=== PATIENT | female | born 1935 | race Caucasian/White ===

== ENCOUNTER 2018-04-29 22:23 | Inpatient (IN) | payer MEDICARE, MEDICAID ==
[2018-04-29] MEDS ORDERED: Ondansetron HCl/PF 4 MG/2 ML Vial ONE (22:33)
[2018-04-29] MEDS ORDERED: Ibuprofen 800 MG TAB ONE (22:38)
[2018-04-29] MEDS ORDERED: Piperacillin/Tazobactam 2.25 GM VIAL ONE (23:52)
[2018-04-30] MEDS ORDERED: Acetaminophen 325 MG TAB ONE (00:07)
[2018-04-30] MEDS ORDERED: Morphine 2 MG/ML SYRINGE ONE (00:07)
--- NOTE | 2018-04-30 00:40 | CT ---
ABDOMEN AND PELVIS CT NONCONTRAST: INDICATIONS: Pyelonephritis. Sepsis. TECHNIQUE: Renal calculus protocol. FINDINGS: There is punctate right nephrolithiasis, without hydronephrosis. Evaluation for pyelonephritis is li mited on the basis of noncontrast imaging. There is nonspecific mild perinephric fat stranding on th e left. Scattered vascular disease is present. There is granulomatous calcification of the spleen. The maliha d abdominal organs, bowel, lymph nodes, and vasculature are otherwise limited on the basis of the non contrast technique. There is colonic diverticulosis. No free air. Incidental note of several calci fications of the bilaterally partially imaged breast tissues. Mild bilateral pleural-based densities at the lung bases may be related to volume loss. IMPRESSION: 1. Nonobstructive, punctate right nephrolithiasis. 2. Asymmetric left perinephric fat stranding. Evaluation for pyelonephritis is limited on the basis of noncontrast CT imaging. 3. Colonic diverticulosis. POS: [facility]
--- NOTE | 2018-04-30 00:47 | PDOC.FPRHP ---
- History of Present Illness Chief Complaint: Weakness History of Present Illness: Ms. Hood presents to ED after increasing weakness, fever/chills. she reports that she was treated for UTI 3 weeks ago with a one week course of an antibiotic she cannot remember. The incontinence, dysuria, and polyuria began to recur one week ago, she saw her PCP and was not satisfied with managment at that time. She denies any gross hematuria, syncope, SOB, CP, or diarrhea. reports decrease PO intake, N/V. ED Course: CBC/CMP, UA, CT stone, zosyn WBC 18 Na 126 1.5 L fluid - History PMHx: RA, DMII, Hypothyroid, HTN, anxiety PSHx: Cholecystectomy, hysterectomy FHx:none Social: former smoker - Review of Systems General: reports: fever/chills, fatigue. denies: weight/appetite/sleep changes Eyes: denies: eye pain, vision changes ENT: denies: nasal congestion, rhinorrhea Respiratory: denies: cough, congestion, shortness of breath Cardiovascular: denies: chest pain, palpitation, edema Gastrointestinal: reports: nausea, vomiting. denies: diarrhea Genitourinary: reports: incontinence, dysuria, polyuria Skin: denies: rashes, lesions Musculoskeletal: denies: pain, tenderness Neurological: denies: numbness, syncope - Vital signs BP: [123/63] HR: [70] RR: [19] Tmax: [101.7] Pox: [100]% on [RA] Wt: [70kg] - Physical Exam Constitutional: NAD, other (mildly somnolent and slow to respond) HEENT: normocephalic and atraumatic, grossly normal vision, MMM Neck: supple, trachea midline Chest: no-tender to palpation Heart: RRR, normal S1/S2, no murmurs/rubs/gallops Lungs: CTAB, no respiratory distress, good air movement Abdomen: soft, non-tender Musculoskeletal: normal structure, normal tone Neurological: no focal deficit, CN II-XII intact Skin: no rash/lesions, good turgor, capillary refill <2 seconds Heme/Lymphatic: no unusual bruising or bleeding, no petechia Psychiatric: normal mood and affect FMR H&P: A/P - Problem List (1) Sepsis Current Visit: Yes Status: Acute Code(s): A41.9 - SEPSIS, UNSPECIFIED ORGANISM (2) UTI (urinary tract infection) Current Visit: Yes Status: Acute (3) Hyponatremia Current Visit: Yes Status: Acute Code(s): E87.1 - HYPO-OSMOLALITY AND HYPONATREMIA (4) LAURA (acute kidney injury) Current Visit: Yes Status: Acute Code(s): N17.9 - ACUTE KIDNEY FAILURE, UNSPECIFIED (5) HTN (hypertension) Current Visit: Yes Status: Acute Code(s): I10 - ESSENTIAL (PRIMARY) HYPERTENSION (6) Diabetes mellitus type 2, controlled Current Visit: Yes Status: Acute Code(s): E11.9 - TYPE 2 DIABETES MELLITUS WITHOUT COMPLICATIONS (7) HLD (hyperlipidemia) Current Visit: Yes Status: Acute Code(s): E78.5 - HYPERLIPIDEMIA, UNSPECIFIED (8) Hypothyroid Current Visit: Yes Status: Acute Code(s): E03.9 - HYPOTHYROIDISM, UNSPECIFIED - Plan 1. Sepsis - likely 2/2 to pyelonephritis with non obstructing stones - 1 L NS bolus - monitor vital signs - repeat CBC 2. UTI - likely source, risk factors for drug resistance - meropenem and vancomycin for empiric coverage - narrow pending UCx results 3. Hyponatremia - volume down 2/2 sepsis - NS 150 ml/hr - monitor urine output 4. LAURA - fluid resuscitation - repeat CMP 5. HTN - hold home medications 6. DMII - elevated glucose, continue home meds 7. HLD -continue home meds 8. Hypothyroid - continue home meds Disposition/LOS: monitor on medical floor, await culture results and sensitivities, adequately fluid resuscitate FMR H&P: Upper Level - Pertinent history 82F presents with pyelonephritis seen on CT from [facility]. Issue started 3 weeks ago when she was treated for UTI as outpatient. Patient was unable to say which antibiotic was used. She completed abx course and felt improved until 1 week ago when she felt UTI symptom of dysuria return. She started abx again 1 day before being seen at [facility]. She came in to that ER due to feeling increased malaise. CT scan and UA there suggested pyelonephritis. She was started with 500 ml NS bolus, 1 g ceftriaxone and started on 100 ml/hrs NS before transfer to [facility]. She received 1000 ml NS bolus here. - Pertinent findings Gen: Alert, oriented, NAD HEENT: Dry mucosal membrane, Resp: CTA bilaterally CV: RRR with no apparent m/g/r GI: Normoactive, soft to palpation Ext: No pitting edema - Plan Date/Time: 04/30/18 0041 I, [Carlos Turk], have evaluated this patient and agree with findings/plan as outlined by actuarial intern resident. Pertinent changes/additions are listed here. 1. Sepsis secondary to left sided Pyelonephritis, failing outpatient therpay - WBC elevation, fever - Start on Meropenem and vancomycin - Pending blood/urine culture - 1000 ml NS bolus in addition to previous bolus for resuscitation. 2. Hypovolemic hyponatremia - Based on history of sepsis. - NS fluid hydration. Reevaluate with CMP - Consider further workup on hyponatremia if does not correct. Goal is 6-8 increase in 24 hour. 3. LAURA vs CKD - No previous kidney function to compare with. - Fluid hydration, reevaluate with lab. Consider nephro consult if not improving 4. 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 Hypothyrodism - Chronic issue, continue home med 6. HTN - Chronic issue, hold during acute sepsis 7. DM2 - Chronic issue, SSI.
[2018-04-30] MEDS ORDERED: Dextrose 50% Abboject 50 ML SYRINGE SLOW IVP PRN (03:34)
[2018-04-30] MEDS ORDERED: Sodium Chloride 0.9% 1,000 ML IV SCH (03:34)
[2018-04-30] MEDS ORDERED: Acetaminophen 325 MG TAB PO PRN (03:34)
[2018-04-30] MEDS ORDERED: HumaLOG 300 UNITS/3 ML VIAL SC PRN (03:34)
[2018-04-30] MEDS ORDERED: Dextrose 5% in Water 1,000 ML IV PRN (03:34)
[2018-04-30] MEDS ORDERED: Ondansetron ODT 4 MG TAB PO PRN (03:34)
[2018-04-30 04:10] VITALS: BMI 27.3
[2018-04-30] MEDS: Sodium Chloride 0.9% 1,000 ML IV SCH ×3 (05:00→20:12)
[2018-04-30] MEDS: MEROPENEM 1 GM/50 ML 1 GM in Premix Bag 1 BAG IVPB SCH ×3 (05:25→21:41)
[2018-04-30] MEDS: Vancomycin HCl 1 GM in Premix Bag 1 BAG IVPB SCH ×2 (05:26→17:38)
[2018-04-30] MEDS: HumaLOG 300 UNITS/3 ML VIAL SC PRN ×2 (05:31→13:28)
[2018-04-30] MEDS ORDERED: Non-Formulary Item 1 EACH (Prednisone [Prednisone] 2.5 MG) PO SCH (08:00)
[2018-04-30] MEDS ORDERED: Tolterodine Tartrate LA 4 MG CAP PO SCH (09:00)
[2018-04-30] MEDS ORDERED: Levothyroxine Sodium 75 MCG TAB PO SCH (09:00)
[2018-04-30] MEDS ORDERED: Non-Formulary Item 1 EACH (Insulin Glargine,Hum.Rec.Anlog [Basaglar Kwikpen U-100] 25 UNI SC SCH (09:00)
[2018-04-30] MEDS: Enoxaparin Sodium 40 MG/0.4 ML SYRINGE SC SCH (09:58)
[2018-04-30] MEDS: Insulin Glargine 25 UNITS in Pre-Filled Syringe 1 EACH SC SCH (09:58)
[2018-04-30] MEDS: TROSPIUM 20 MG TABLET PO SCH ×2 (09:59→20:11)
[2018-04-30] MEDS: Escitalopram Oxalate 10 mg Tablet PO SCH (09:59)
[2018-04-30] MEDS: Hydroxychloroquine Sulfate 200 MG TAB PO SCH (09:59)
[2018-04-30] MEDS: predniSONE 5 MG TAB PO SCH (09:59)
--- NOTE | 2018-04-30 12:55 | HP ---
I have read through the history and physical of Dr. Aguila Boone and I have discussed the case with bindu castellano. HISTORY OF PRESENT ILLNESS: Briefly, Ms. Hood is a pleasant 82-year-old white female patient who was admitted with pyelonephritis. It is obvious from her history that she has had several urinary tr act infections during the last year that seemed to recur quite frequently. Of note is the fact she a lso has kidney stones in her right kidney. She presented to our ER with fever, chills, and a high wh ite count, abnormal urinalysis and has been started on broad spectrum antibiotics. PHYSICAL EXAMINATION: GENERAL: Right now she is awake, alert, in no distress. VITAL SIGNS: Her initial temperature is 101.7. She is currently afebrile, pulse rate is 70 and regu lar, respirations are 16, her room air oxygen saturation is 96%. Her blood pressure 121/60. ENT: Moist mucous membranes. NECK: Supple. CARDIAC: Heart rhythm regular, no gallop or murmur noted. LUNGS: Clear, without rales or wheezes. ABDOMEN: Flat and soft, without guarding, rebound or rigidity. LABORATORY DATA: Her white count was elevated. She does have an abnormal urinalysis. ASSESSMENT: Pyelonephritis with presence of kidney stones. PLAN: Continue broad spectrum antibiotics. It sounds from her history like the stones possibly are serving as a nidus of infection, so we will consult Urology.
[2018-04-30] MEDS: Ibuprofen 600 MG TAB PO PRN (15:43)
[2018-05-01] MEDS: Vancomycin HCl 1 GM in Premix Bag 1 BAG IVPB SCH (03:58)
[2018-05-01] MEDS: Sodium Chloride 0.9% 1,000 ML IV SCH (03:58)
[2018-05-01 04:38] LABS: ALT (SGPT) 12 U/L (8-55); AST (SGOT) 19 U/L (5-34); Alkaline Phosphatase 73 U/L (40-150); Anion Gap 11 mmol/L (10-20); BUN (Urea Nitrogen) 25 mg/dL (9.8-20.1); Bilirubin, Total 0.5 mg/dL (0.2-1.2); Calc. Creatinine Clearance 38 mL/min (70-130); Calcium 8.9 mg/dL (7.8-10.44); Carbon Dioxide 21 mmol/L (23-31); Chloride 98 mmol/L (98-107); Estimated GFR-MDRD 40; Globulin 2.2 g/dL (2.4-3.5); Glucose 140 mg/dL (83-110); Potassium 3.4 mmol/L (3.5-5.1); Protein, Total 5.2 g/dL (6.0-8.3); Sodium 127 mmol/L (136-145)
[2018-05-01] MEDS: Levothyroxine Sodium 75 MCG TAB PO SCH (05:29)
[2018-05-01] MEDS: MEROPENEM 1 GM/50 ML 1 GM in Premix Bag 1 BAG IVPB SCH ×3 (05:30→23:47)
--- NOTE | 2018-05-01 05:44 | PDOC.FM ---
- Objective MAR Reviewed: Yes Vital Signs & Weight: Vital Signs (12 hours) Temp Pulse Resp BP Pulse Ox 04/30/18 20:07 97.9 F 73 18 157/70 H 94 L Weight Weight 72.178 kg I&O: 04/29/18 04/30/18 05/01/18 06:59 06:59 06:59 Intake Total 4018 Output Total 1450 Balance 2568 Result Diagrams: 05/01/18 04:00 Dx/Plan (1) Sepsis Code(s): A41.9 - SEPSIS, UNSPECIFIED ORGANISM Status: Acute (2) Pyelonephritis, acute Code(s): N10 - ACUTE PYELONEPHRITIS Status: Acute (3) LAURA (acute kidney injury) Code(s): N17.9 - ACUTE KIDNEY FAILURE, UNSPECIFIED Status: Acute (4) Diabetes mellitus type 2, controlled Code(s): E11.9 - TYPE 2 DIABETES MELLITUS WITHOUT COMPLICATIONS Status: Acute (5) HLD (hyperlipidemia) Code(s): E78.5 - HYPERLIPIDEMIA, UNSPECIFIED Status: Acute (6) HTN (hypertension) Code(s): I10 - ESSENTIAL (PRIMARY) HYPERTENSION Status: Acute (7) Hyponatremia Code(s): E87.1 - HYPO-OSMOLALITY AND HYPONATREMIA Status: Acute (8) Hypothyroid Code(s): E03.9 - HYPOTHYROIDISM, UNSPECIFIED Status: Acute (9) UTI (urinary tract infection) Status: Acute - Plan Plan: This is an 82 yo female with a PMH of HTN, DMII, recurrent UTIs, Hypothyroidism Sepsis likely 2/2 pyelonephritis with bacteremia -Sepsis is resolved. CT shows fat stranding around left kidney and non- obstructed stones in right renal pelvis. Pt. has responded well to fluid resuscitation and is currently receiving meropenem and vancomycin. These abx were picked due to a concern about multi drug resistant organisms. We are trending WBC and kidney function. Blood cultures are positive for ecoli and gram negative rods. I discussed pt. plan with Dr. Dawson and she agreed with the current plan of treating the pyelonephitis and will see the pt. in the outpt setting. Pending Ucx LAURA -Improving, we will continue IVFs and monitor Hyponatremia -Unchanged. Continue NS, considering fluid restriction when better fluid resuscitated. HTN -Blood pressure is elevated this morning. We will continue to monitor and restart BP meds if it continues to improve HLD -Continue home meds Hypothyroid -Continue jamilah emeds DMII -Continue home meds, glucose is better controlled Code: DNR Prophylaxis: lovenox Family: none at bedside Disposition: DC in 2-3 days
[2018-05-01] MEDS: HumaLOG 300 UNITS/3 ML VIAL SC PRN ×2 (05:59→17:03)
[2018-05-01 06:02] LABS: #Eosinphils 0.1 thou/uL (0.0-0.7); #Lymphocytes 0.7 thou/uL (1.20-3.40); #Monocytes 0.8 thou/uL (0.11-0.59); #Neutrophils 9.6 thou/uL (1.40-6.50); %Basophils 0.1 % (0.0-1.0); %Eosinophils 0.7 % (0.0-10.0); %Lymphocytes 5.8 % (21.0-51.0); %Monocytes 6.9 % (0.0-10.0); %Neutrophils 86.5 % (42.0-75.0); Hemoglobin 11.2 g/dL (12.0-16.0); Mean Corpuscular Hemoglobin 29.6 pg (27.0-31.0); Mean Corpuscular Volume 89.6 fL (78.0-98.0); Mean Platelet Volume 10.3 fL (7.4-10.4); PLT Morphology Comment Appears Decreased; Platelet Count 88 thou/uL (130-400); RBC Distribution Width 11.7 % (11.5-14.5); Red Blood Cell (RBC) Count 3.77 mill/uL (4.20-5.40); White Blood Cell (WBC) Count 11.1 thou/uL (4.8-10.8)
[2018-05-01] MEDS ORDERED: Labetalol HCl 100 MG/20 ML VIAL SLOW IVP SCH (07:45)
[2018-05-01] MEDS ORDERED: Furosemide 20 MG/2 ML VIAL SLOW IVP SCH (07:45)
[2018-05-01] MEDS ORDERED: Non-Formulary Item 1 EACH (Losartan Potassium [Losartan Potassium] 100 MG) PO SCH (09:00)
[2018-05-01] MEDS ORDERED: Famotidine 20 MG TAB PO SCH (09:00)
[2018-05-01] MEDS: predniSONE 5 MG TAB PO SCH (09:08)
[2018-05-01] MEDS: Carvedilol 25 MG TAB PO SCH ×2 (09:08→21:41)
[2018-05-01] MEDS: Ibuprofen 600 MG TAB PO PRN (09:08)
[2018-05-01] MEDS: Enoxaparin Sodium 40 MG/0.4 ML SYRINGE SC SCH (09:09)
[2018-05-01] MEDS: TROSPIUM 20 MG TABLET PO SCH ×2 (09:09→21:41)
[2018-05-01] MEDS: Losartan 25 MG TAB PO SCH (09:09)
[2018-05-01] MEDS: Escitalopram Oxalate 10 mg Tablet PO SCH (09:09)
[2018-05-01] MEDS: Hydroxychloroquine Sulfate 200 MG TAB PO SCH (09:09)
[2018-05-01] MEDS: Insulin Glargine 25 UNITS in Pre-Filled Syringe 1 EACH SC SCH (09:10)
--- NOTE | 2018-05-01 13:08 | ADD-PRG ---
This is an addendum to the note of Dr. Chris Apodaca. Ms. Hood is looking and feeling much better. We did touch base with Urology and they will see her as an outpatient when she is discharged. I have recommended that this be done in a timely fashion t hat is less than one week from discharge and keeping her on antibiotics until she sees the urologist. In the event, clinically she looks and feels much improved. She remains afebrile, although now her blood pressure is beginning to rise and we are reinstituting her blood pressure medications.
[2018-05-01] MEDS ORDERED: Loratadine 10 MG TAB PO SCH (15:00)
[2018-05-01 16:52] LABS: Vancomycin, Trough 21.8 ug/mL
[2018-05-02] MEDS: Levothyroxine Sodium 75 MCG TAB PO SCH (05:41)
[2018-05-02 05:44] LABS: #Lymphocytes 0.6 thou/uL (1.20-3.40); #Monocytes 1.1 thou/uL (0.11-0.59); #Neutrophils 9.9 thou/uL (1.40-6.50); %Basophils 0.1 % (0.0-1.0); %Eosinophils 0.3 % (0.0-10.0); %Lymphocytes 5.5 % (21.0-51.0); %Monocytes 9.3 % (0.0-10.0); %Neutrophils 84.8 % (42.0-75.0); Mean Corpuscular HGB CONC 34.2 g/dL (32.0-36.0); Mean Corpuscular Hemoglobin 29.8 pg (27.0-31.0); Mean Corpuscular Volume 87.3 fL (78.0-98.0); Platelet Count 97 thou/uL (130-400); RBC Distribution Width 11.7 % (11.5-14.5); Red Blood Cell (RBC) Count 3.69 mill/uL (4.20-5.40); White Blood Cell (WBC) Count 11.7 thou/uL (4.8-10.8)
[2018-05-02 05:46] LABS: Anion Gap 11 mmol/L (10-20); BUN (Urea Nitrogen) 20 mg/dL (9.8-20.1); Calc. Creatinine Clearance 47 mL/min (70-130); Calcium 9.1 mg/dL (7.8-10.44); Carbon Dioxide 24 mmol/L (23-31); Chloride 97 mmol/L (98-107); Estimated GFR-MDRD 50; Glucose 95 mg/dL (83-110); Potassium 3.2 mmol/L (3.5-5.1); Sodium 129 mmol/L (136-145)
--- NOTE | 2018-05-02 06:06 | PDOC.FM ---
- Subjective Subjective: Pt. reports feeling better today. She states she is still wheezing some but denies sob. She reports having asthma 8 years ago. She denies CP, abdominal pain , or n/v - Objective MAR Reviewed: Yes Vital Signs & Weight: Vital Signs (12 hours) Temp Pulse Resp BP Pulse Ox 05/02/18 00:00 100.0 F H 78 22 H 180/82 H 100 05/01/18 20:00 98.3 F 68 18 160/80 H 92 L Weight Admit Weight 72.178 kg Weight 72.178 kg I&O: 04/30/18 05/01/18 05/02/18 06:59 06:59 06:59 Intake Total 4018 1950 Output Total 1450 1400 Balance 2568 550 Result Diagrams: 05/02/18 05:01 05/02/18 05:01 Phys Exam - Physical Examination Constitutional: NAD HEENT: moist MMs Neck: no JVD Respiratory: wheezing present Good air movement. no crackles Cardiovascular: RRR, no significant murmur Gastrointestinal: soft, non-tender, no distention, positive bowel sounds Musculoskeletal: no edema, pulses present Neurological: moves all 4 limbs Psychiatric: A&O x 3 Dx/Plan (1) Sepsis Code(s): A41.9 - SEPSIS, UNSPECIFIED ORGANISM Status: Acute (2) Pyelonephritis, acute Code(s): N10 - ACUTE PYELONEPHRITIS Status: Acute (3) LAURA (acute kidney injury) Code(s): N17.9 - ACUTE KIDNEY FAILURE, UNSPECIFIED Status: Acute (4) Diabetes mellitus type 2, controlled Code(s): E11.9 - TYPE 2 DIABETES MELLITUS WITHOUT COMPLICATIONS Status: Acute (5) HLD (hyperlipidemia) Code(s): E78.5 - HYPERLIPIDEMIA, UNSPECIFIED Status: Acute (6) HTN (hypertension) Code(s): I10 - ESSENTIAL (PRIMARY) HYPERTENSION Status: Acute (7) Hyponatremia Code(s): E87.1 - HYPO-OSMOLALITY AND HYPONATREMIA Status: Acute (8) Hypothyroid Code(s): E03.9 - HYPOTHYROIDISM, UNSPECIFIED Status: Acute (9) UTI (urinary tract infection) Status: Acute - Plan Plan: This is an 82 yo female with a PMH of HTN, DMII, recurrent UTIs, Hypothyroidism Sepsis likely 2/2 pyelonephritis with bacteremia -Sepsis is resolved. CT shows fat stranding around left kidney and non- obstructed stones in right renal pelvis. Pt. has responded well to fluid resuscitation and is currently receiving meropenem. We dropped off vancomycin. Kidney function is improved today. Blood cultures are positive for ecoli and gram negative rods. I discussed pt. plan with Dr. Dawson and she agreed with the current plan of treating the pyelonephitis and will see the pt. in the outpt setting. Urine culture shows jaramillo sensitive E coli. Pt. will likely be switched to augmentin in the outpt setting. I will be attempting to set up pt. with outpt Urology visit. LAURA -Improving Hyponatremia -Improved Hypokalemia -Pt. receiving PO potassium HTN -Blood pressure is elevated this morning. We are continuing her home meds HLD -Continue home meds Hypothyroid -Continue home meds DMII -Continue home meds, glucose is better controlled Code: DNR Prophylaxis: lovenox Family: none at bedside Disposition: DC possibly today pending clinical presentation.
[2018-05-02 06:19] LABS: Magnesium 1.7 mg/dL (1.6-2.6)
[2018-05-02 06:21] LABS: Phosphorus 1.8 mg/dL (2.3-4.7)
[2018-05-02 08:26] VITALS: TEMP 98.6
[2018-05-02] MEDS ORDERED: Famotidine 20 MG TAB PO SCH (09:00)
[2018-05-02] MEDS: Losartan 25 MG TAB PO SCH (09:34)
[2018-05-02] MEDS: predniSONE 5 MG TAB PO SCH (09:35)
[2018-05-02] MEDS: Escitalopram Oxalate 10 mg Tablet PO SCH (09:36)
[2018-05-02] MEDS: Carvedilol 25 MG TAB PO SCH (09:36)
[2018-05-02] MEDS: Potassium Chloride 20 MEQ TAB PO SCH ×2 (09:36→13:35)
[2018-05-02] MEDS: Hydroxychloroquine Sulfate 200 MG TAB PO SCH (09:37)
[2018-05-02] MEDS: TROSPIUM 20 MG TABLET PO SCH (09:37)
[2018-05-02] MEDS: Enoxaparin Sodium 40 MG/0.4 ML SYRINGE SC SCH (09:37)
[2018-05-02] MEDS: Insulin Glargine 25 UNITS in Pre-Filled Syringe 1 EACH SC SCH (09:41)
[2018-05-02] MEDS: Fluticasone Propionate Nasal Spray 16 gm Bottle NASAL SCH ×2 (10:19→11:23)
[2018-05-02] MEDS: MEROPENEM 1 GM/50 ML 1 GM in Premix Bag 1 BAG IVPB SCH (11:22)
[2018-05-02 14:45] VITALS: BP 164/78
[2018-05-02] MEDS ORDERED: Hydrochlorothiazide 25 MG TAB PO SCH (15:00)
[2018-05-03] MEDS ORDERED: Hydrochlorothiazide 25 MG TAB PO SCH (09:00)
--- NOTE | 2018-05-03 13:19 | DIS-2 ---
DATE OF ADMISSION: 04/30/2018 DATE OF DISCHARGE: 05/02/2018 ADMITTING ATTENDING: Dhruv Blandon M.D. DISCHARGE ATTENDING: Dhruv Blandon M.D. RESIDENT: Chris Apodaca D.O. CONSULTATIONS: None. PROCEDURES: Abdomen and pelvis CT, noncontrast showing nonobstructive punctate right nephrolithiasis and asymmetrical perinephric fat stranding on the left, colonic diverticulitis. PRIMARY DIAGNOSIS: Pyelonephritis. SECONDARY DIAGNOSES: RA, type 2 diabetes, hypothyroidism, hypertension, anxiety. DISCHARGE MEDICATIONS: 1. Omnicef 300 mg p.o. b.i.d. 2. Hydrochlorothiazide 25 mg p.o. daily. 3. DuoNeb q.4 hours p.r.n. for wheezing. 4. Carvedilol 25 mg p.o. b.i.d. 5. Escitalopram 10 mg p.o. daily. 6. Kenyatta 180 mg p.o. daily. 7. Flonase 1 spray per nostril b.i.d. 8. Hydrochlorothiazide 25 mg p.o. daily. 9. Hydroxychloroquine sulfate 400 mg p.o. daily. 10. Insulin glargine 25 units daily. 11. Levothyroxine 75 mcg p.o. daily. 12. Losartan 25 mg p.o. daily. 13. Nitrofurantoin 100 mg p.o. at bedtime to be started after Omnicef is completed. 14. Prednisone 2.5 mg p.o. a.m. 15. Detrol 4 mg p.o. daily. DISCONTINUED MEDICATIONS: None. HISTORY OF PRESENT ILLNESS AND BRIEF HOSPITAL COURSE: This is an 82-year-old female who presented to the ED after increased weakness, fever, and chills. She was treated for UTI three weeks ago with 1 week course of antibiotic, she cannot remember. Reports that she has had recurrent UTIs in the past few years. The patient was admitted for pyelonephritis and was treated with meropenem and vancomycin initially due to concern of multidrug resistant bacteria. The patient's cultures came back positive for E. coli. Blood culture came back positive for E. coli as well. Both cultures showed pansensiti ve E. coli. The patient was tolerated hospitalization well, had no adverse events afterwards. Dr. R avanbakhsh was called regarding consultation and the patient was set up for outpatient appointment at the end of the month. The patient was discharged on Omnicef to complete treatment for pyelonephriti s and was given Macrobid for suppressive therapy until her appointment. DISPOSITION: Stable. DISCHARGE INSTRUCTIONS: 1. Location: Home. 2. Diet: Diabetic. 3. Activity: As tolerated. 4. Followup: Follow up with primary care physician in 1-[address] Dawson as indicat ed on discharge instructions on 05/28/2018 at 10:15.
== END 2018-05-02 17:45 | disposition home or self-care (01) | DRG 872 ==
LOC: ERS 22:23 → ONC 04-30 00:46
PROVIDERS: ADMIT Family Medicine; ATTEND Family Medicine
DX: A41.9 Sepsis, unspecified organism (principal); N39.0 Urinary tract infection, site not specified; E87.1 Hypo-osmolality and hyponatremia; N17.9 Acute kidney failure, unspecified; N20.0 Calculus of kidney; Z87.891 Personal history of nicotine dependence; M06.9 Rheumatoid arthritis, unspecified; E03.9 Hypothyroidism, unspecified; F41.9 Anxiety disorder, unspecified; E11.9 Type 2 diabetes mellitus without complications; N18.9 Chronic kidney disease, unspecified; I12.9 Hypertensive chronic kidney disease with stage 1 through stage 4 chronic kidney disease, or unspecified chronic kidney disease; Z66 Do not resuscitate
CPT/HCPCS: 36415; 36416; 74176; 80048; 80053; 80202; 83735; 84100; 85025; 90471; 90662; 94640; 96365; 96375; A4216; G0008; G8978-GP-CK; G8979-GP-CK; G8980-GP-CK; G8987-GO-CI; G8988-GO-CI; G8989-GO-CI; J1650; J2185; J2270; J2405; J2543; J3370; J7620; Q0162

== ENCOUNTER 2018-12-09 08:33 | Outpatient (CLI) | payer MEDICARE, OTHER ==
--- NOTE | 2018-12-09 11:06 | MRI ---
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 No retroperitoneal adenopathy. No hydronephrosis. No marrow infiltrative process. Modic 1 endplate changes at L5/S1. The conus medullaris terminates at the superior endplate of L2. Modic 2 endplate changes at L3-4 and L4-5. Levels are as follows: L1/L2: Mild circumferential disc bulge. Central annular fissure posteriorly. Minimal effacement of ve ntral CSF space. No significant neural foraminal narrowing. L2/L3: There is a moderate circumferential disc bulge greatest in the bilateral subsequent foraminal zones. There is effacement of ventral CSF space with increased posterior epidural fat. Spinal canal measures approximately 5 mm. There is moderate left and mild right neural foraminal narrowing. L3/L4: Severe degenerative disc space height loss. Degenerative 2 mm retrolisthesis. Moderate facet a rthrosis. Circumferential disc osteophyte complex. Spinal canal measures approximately 5 mm. Moderate to severe left and moderate right neural foraminal narrowing. L4/L5: Moderate facet arthrosis. Degenerative disc space height loss. Bilateral subforaminal posterio r osteophytes. Moderate bilateral neural foraminal narrowing. L5/S1: There is moderate facet arthropathy with joint effusions in both facet joints. There is a dege nerative 2 mm anterolisthesis. Circumferential disc osteophyte complex. Severe right and moderate to severe left neural foraminal narrowing with abutment of the exiting and traversing nerve roots. Impression: Advanced spondylosis as described with multifocal neural foraminal and spinal canal narro wing with nerve root abutment.
== END 2018-12-09 08:34 | disposition home or self-care (01) ==
LOC: BICMRI 08:33
PROVIDERS: ATTEND Family Medicine
DX: M47.26 Other spondylosis with radiculopathy, lumbar region (principal); M48.061 Spinal stenosis, lumbar region without neurogenic claudication
CPT/HCPCS: 72148

== ENCOUNTER 2020-11-13 10:18 | Emergency (ER) | payer MEDICARE, OTHER ==
[2020-11-13] MEDS ORDERED: Ketorolac Tromethamine 30 MG/ML VIAL ONE (11:16)
[2020-11-13 11:38] LABS: #Eosinphils 0.2 thou/uL (0.0-0.7); #Lymphocytes 1.2 thou/uL (1.20-3.40); #Monocytes 0.8 thou/uL (0.11-0.59); #Neutrophils 8.2 thou/uL (1.40-6.50); %Basophils 0.2 % (0.0-1.0); %Eosinophils 1.8 % (0.0-10.0); %Lymphocytes 11.5 % (21.0-51.0); %Monocytes 7.7 % (0.0-10.0); %Neutrophils 78.8 % (42.0-75.0); Hemoglobin 11.8 g/dL (12.0-16.0); Mean Corpuscular Hemoglobin 28.5 pg (27.0-31.0); Mean Corpuscular Volume 86.5 fL (78.0-98.0); Mean Platelet Volume 9.5 fL (7.4-10.4); Platelet Count 182 thou/uL (130-400); RBC Distribution Width 12.2 % (11.5-14.5); Red Blood Cell (RBC) Count 4.13 mill/uL (4.20-5.40); White Blood Cell (WBC) Count 10.4 thou/uL (4.8-10.8)
[2020-11-13 12:02] LABS: ALT (SGPT) 13 U/L (8-55); AST (SGOT) 19 U/L (5-34); Albumin 3.9 g/dL (3.4-4.8); Alkaline Phosphatase 88 U/L (40-110); Anion Gap 13 mmol/L (10-20); BUN (Urea Nitrogen) 19 mg/dL (9.8-20.1); Bilirubin, Total 0.3 mg/dL (0.2-1.2); Calc. Creatinine Clearance 0 mL/min (70-130); Calcium 9.2 mg/dL (7.8-10.44); Carbon Dioxide 28 mmol/L (23-31); Chloride 96 mmol/L (98-107); Globulin 2.3 g/dL (2.4-3.5); Glucose 227 mg/dL (83-110); Potassium 3.4 mmol/L (3.5-5.1); Protein, Total 6.2 g/dL (5.8-8.1); Sodium 134 mmol/L (136-145)
[2020-11-13 13:09] LABS: Bacteria/HPF 1+ HPF (None Seen); Bilirubin Negative (Negative); Blood, Urine Negative (Negative); Clarity Clear (Clear); Glucose, Urine (Dipstick) 150 mg/dL (Negative); Ketone, Urine Negative (Negative); Leukocyte 250 Leu/uL (Negative); Nitrite Negative (Negative); Protein, Urine (Dipstick) Negative (Neg-Trace); RBC/HPF None Seen HPF (0-3); Specific Gravity, Urine 1.004 (1.002-1.036); Squamous Epithelial 0-3 HPF (0-3); Urobilinogen Normal mg/dL (Less than 2)
== END 2020-11-13 13:37 | disposition home or self-care (01) ==
LOC: ERS 10:18
DX: N39.0 Urinary tract infection, site not specified (principal); M06.9 Rheumatoid arthritis, unspecified; E11.9 Type 2 diabetes mellitus without complications; E03.9 Hypothyroidism, unspecified; I10 Essential (primary) hypertension; Z87.891 Personal history of nicotine dependence; Z79.899 Other long term (current) drug therapy; Z79.82 Long term (current) use of aspirin
CPT/HCPCS: 71045; 74176; 80053; 81003; 81015; 84484; 85025; 87077; 87086; 87186; 93005; 96374; J1885